=== PATIENT | male | born 1950 | race Caucasian/White ===

== ENCOUNTER 2023-01-15 11:48 | Outpatient (CLI) | payer OTHER, SELFPAY | END 2023-01-15 11:49 | disposition home or self-care (01) | LOC: AMB 02-03 22:59 | PROVIDERS: Visit Provider Student in an Organized Health Care Education/Training Program | DX: E11.65 Type 2 diabetes mellitus with hyperglycemia (principal); R42 Dizziness and giddiness | CPT/HCPCS: A0425; A0427 ==

== ENCOUNTER 2023-01-15 12:18 | Emergency (ER) | payer OTHER, SELFPAY ==
[2023-01-15] VITALS (23 sets, daily range): BP systolic 87–112; BP diastolic 37–63; PULSE 85–111; RESP 18–20; TEMP 36.5; O2SAT 84–100; BMI 23.1
--- NOTE | 2023-01-15 12:49 | ED.GENADULT ---
HPI - General Adult General Date Seen: 01/15/23 Chief complaint: Diabetic Related Problem Stated complaint: hypoglycemic Time Seen by Provider: 01/15/23 12:25 Source: patient Mode of arrival: ambulatory Limitations: no limitations History of Present Illness HPI narrative: Patient is a 72-year-old male presenting to the emergency department for hyperglycemia and dizziness. He states today he went out and send his home Flovent only get more he came back and got to work he was feeling lightheaded and dizzy. He states he gets like this whenever she becomes hyperglycemic. He checked his blood sugar was 350. As the attending decided to come to the emergency department. He has been having issues with blood sugar in got a new pump 1 week ago states has been constant not some problems also. States he feels fine now. Denies fevers, chills, chest pain, abdominal pain, diarrhea, constipation, lightheadedness, weakness, numbness headache, vision changes. This admit to shortness of breath states it is a chronic issue. Also states he has baseline issues with his balance and that is not feeling different today either. Review of Systems Status of ROS: Reports: 10 or more systems reviewed and unremarkable except as noted in History and below [facility] Social History Smoking Status: Never smoker Do you use any of these nicotine containing products: None How often do you have six or more drinks on one occasion: Never AUDIT-C Alcohol total score: 0 Non-prescribed substance use: denies use service: No Exam Narrative: Exam Narrative: Const: Well-nourished, Well-developed, in mild distress Eyes: PERRL, no conjunctival injection, and symmetrical lids ENMT: Atraumatic external nose and ears. Moist mucous membranes. Neck: Symmetric, trachea midline, No thyromegaly. CVS: RRR, No murmurs or gallops. Peripheral pulses 2+ and equal in all extremities RESP: Unlabored respiratory effort. Clear to auscultation bilaterally. GI: Nontender/Nondistended, No rebound or guarding. MSK:Extremities w/o deformity, Normal Active ROM Skin: Warm, Dry. No rashes or lesions. Neuro: Normal Muscle tone, No focal neurological deficits. Psych: Awake, Alert, & Oriented x3. Appropriate mood and affect. Const: Vital Signs, click to edit/add: Vital Signs - 24 hr 01/15/23 12:27 01/15/23 13:58 01/15/23 14:00 Temperature 97.7 F Pulse Rate 94 98 Pulse Rate [Right Pulse Oximeter] 98 Respiratory Rate 18 Blood Pressure Blood Pressure [Ri ght Upper Arm] 94/37 L Pulse Oximetry 95 100 97 Oxygen Delivery Me thod Room Air Room Air Room Air 01/15/23 14:02 01/15/23 14:15 01/15/23 14:30 Temperature Pulse Rate 100 90 93 Pulse Rate [Right Pulse Oximeter] Respiratory Rate Blood Pressure 94/47 L Blood Pressure [Ri ght Upper Arm] Pulse Oximetry [address]od Room Air Room Air Room Air 01/15/23 14:31 01/15/23 14:32 01/15/23 14:45 Temperature Pulse Rate 92 91 89 Pulse Rate [Right Pulse Oximeter] Respiratory Rate 18 Blood Pressure 97/46 L Blood Pressure [Ri ght Upper Arm] Pulse Oximetry [address]od Room Air 01/15/23 15:00 01/15/23 15:02 01/15/23 15:15 Temperature Pulse Rate 91 90 90 Pulse Rate [Right Pulse Oximeter] Respiratory Rate Blood Pressure 111/55 L Blood Pressure [Ri ght Upper Arm] Pulse Oximetry [address]od 01/15/23 15:30 01/15/23 16:02 01/15/23 16:32 Temperature Pulse Rate 111 H Pulse Rate [Right Pulse Oximeter] Respiratory Rate Blood Pressure 105/47 L 106/45 L Blood Pressure [Ri ght Upper Arm] Pulse Oximetry [address] thod 01/15/23 17:02 01/15/23 17:32 01/15/23 18:02 Temperature Pulse Rate Pulse Rate [Right Pulse Oximeter] Respiratory Rate 18 Blood Pressure 109/63 112/53 L 110/51 L Blood Pressure [Ri ght Upper Arm] Pulse Oximetry Oxygen Delivery Ct thod Room Air 01/15/23 18:27 01/15/23 18:36 Temperature Pulse Rate Pulse Rate [Right Pulse Oximeter] 85 Respiratory Rate 18 Blood Pressure 109/56 L Blood Pressure [Ri ght Upper Arm] Pulse Oximetry 97 [facility] Vital Signs Vital signs: Initial Vital Signs Temperature 97.7 F 01/15/23 12:27 Temperature Source Temporal Artery Scan 01/15/23 12:27 Pulse Rate 98 01/15/23 12:27 Respiratory Rate 18 01/15/23 12:27 Blood Pressure 94/37 L 01/15/23 12:27 Blood Pressure Mean 56 L 01/15/23 12:27 Blood Pressure Position Sitting 01/15/23 12:27 Pulse Oximetry 95 01/15/23 12:27 Oxygen Delivery Method Room Air 01/15/23 12:27 Vital Signs Temperature 97.7 F 01/15/23 12:27 Pulse Rate 98 01/15/23 12:27 Respiratory Rate 18 01/15/23 12:27 Blood Pressure 94/37 L 01/15/23 12:27 Pulse Oximetry 95 01/15/23 12:27 Oxygen Delivery Method Room Air 01/15/23 12:27 Temperature 97.7 F 01/15/23 12:27 Pulse Rate 85 01/15/23 18:27 Respiratory Rate 18 01/15/23 18:27 Blood Pressure 109/56 L 01/15/23 18:36 Pulse Oximetry 97 01/15/23 18:27 Oxygen Delivery Method Room Air 01/15/23 18:27 Medical Decision Making MDM Narrative Medical decision making narrative: Patient is a 72-year-old male presented emergency department for hyperglycemia. He said he has been having issues with his insulin pump. He states he got his truck today and feeling dizzy and checked his blood sugar and it was over 300 so he came to the emergency department. By time he arrived his 1st blood sugars 225. This time he states he is feeling much better and asymptomatic. CBC, BMP, magnesium, troponin were all ordered on this patient. EKG was also done. Patient's lab work returns showing signs of an acute kidney injury. His creatinine is 1.9. Is able to look to his health records and shows his baseline is around 1.1. Patient was given 2 L of fluid. Point of care troponins were done but resides be not very accurate instead a lab draw for a BMP was done. His new creatinine is now 1.6. He no longer meets criteria for acute kidney injury. From this standpoint he can be discharged home. He states he is up appointment with his primary care doctor on Tuesday. I gave him strict return precautions and informed him he needs to talk to his primary care provider about his kidney function. He states he understands. While he was here his blood sugar started to drop into the 70s despite multiple feedings. Pre continue to monitor his blood sugar now is stabilized in the 100s. There was able to get his insulin pump glucose monitor working and is now tracking his blood sugars. It is showing his blood sugars in the low 100s also. This standpoint he can also be discharged. Lab Data Labs: Lab Results 01/15/23 01/15/23 01/15/23 Range/Units 13:23 16:00 16:09 WBC 13.77 H (4.50-11.00) K/uL RBC 4.07 L (4.30-5.90) m/uL Hgb 11.9 L (13.5-17.5) gm/dL Hct 36.5 L (37.0-53.0) % MCV 90 (80-100) fL MCH 29 (26-34) pg MCHC 33 (32-36) gm/dL RDW Coeff of Demetrius 14.0 (11.5-15.5) % Plt Count 249 (140-440) K/uL Neut % (Auto) 90.2 H (42.0-72.0) % Lymph % (Auto) 5.7 L (20-44) % Mccormick % (Auto) 3.7 (0.0-11.0) % Eos % (Auto) 0.0 (0.0-7.0) % Baso % (Auto) 0.0 (0.0-3.0) % Neut # (Auto) 12.40 H (1.7-7.0) K/uL Lymph # (Auto) 0.80 L (0.90-2.90) K/uL Mccormick # (Auto) 0.50 (0.00-0.90) K/UL Eos # (Auto) 0.00 (0.00-0.50) K/uL Baso # (Auto) 0.00 (0.00-0.30) K/uL Abs Immat Gran (auto) 0.10 (0.00-0.30) K/uL Imm/Tot Granulo (auto) 0.4 % Sodium 136 (135-149) mmol/L Potassium 3.4 L (3.6-5.1) mmol/L Chloride 100 (96-114) mmol/L Carbon Dioxide 18 L (20-32) mmol/L Anion Gap 18 H (7-15) mEq/L BUN 43 H (7-30) mg/dL Creatinine 1.9 H (0.5-1.5) mg/dL Estimated Creat Clear 40.49 Estimated GFR 37 ml/min Glucose 113 (60-115) mg/dL Calcium 9.8 (8.4-10.6) mg/dL Magnesium 1.8 (1.5-2.6) mg/dL Troponin I 0.03 (0.01-0.04) ng/mL Urine Color (Yellow) Urine Appearance (Clear) Urine pH (5.0-8.5) Ur Specific [place] (1.000-1.030) Urine Protein (Negative) Urine Glucose (UA) (Negative) Urine Ketones (Negative) Urine Blood (Negative) Urine Nitrite (Negative) Urine Bilirubin (Negative) Urine Urobilinogen (0.2-1.0) Ur Leukocyte Esterase (Negative) Urine RBC (0-2) Urine WBC (0-5) Ur Squamous Epith Cells (None-Few) Urine Bacteria (None) POC Glucose 71 (60-115) mg/dl POC Creatinine 1.8 H (0.6-1.3) mg/dl 01/15/23 01/15/23 01/15/23 Range/Units 18:03 18:06 18:20 WBC (4.50-11.00) K/uL RBC (4.30-5.90) m/uL Hgb (13.5-17.5) gm/dL Hct (37.0-53.0) % MCV (80-100) fL MCH (26-34) pg MCHC (32-36) gm/dL RDW Coeff of Demetrius (11.5-15.5) % Plt Count (140-440) K/uL Neut % (Auto) (42.0-72.0) % Lymph % (Auto) (20-44) % M[place]ormick % (Auto) (0.0-11.0) % Eos % (Auto) (0.0-7.0) % Baso % (Auto) (0.0-3.0) % Neut # (Auto) (1.7-7.0) K/uL Lymph # (Auto) (0.90-2.90) K/uL Mccormick # (Auto) (0.00-0.90) K/UL Eos # (Auto) (0.00-0.50) K/uL Baso # (Auto) (0.00-0.30) K/uL Abs Immat Gran (auto) (0.00-0.30) K/uL Imm/Tot Granulo (auto) % Sodium 134 L (135-149) mmol/L Potassium 4.2 (3.6-5.1) mmol/L Chloride 104 (96-114) mmol/L Carbon Dioxide 23 (20-32) mmol/L Anion Gap 7 (7-15) mEq/L BUN 44 H (7-30) mg/dL Creatinine 1.6 H (0.5-1.5) mg/dL Estimated Creat Clear 48.08 Estimated GFR 45 ml/min Glucose 105 (60-115) mg/dL Calcium 9.5 (8.4-10.6) mg/dL Magnesium (1.5-2.6) mg/dL Troponin I (0.01-0.04) ng/mL Urine Color (Yellow) Urine Appearance (Clear) Urine pH (5.0-8.5) Ur Specific [place] (1.000-1.030) Urine Protein (Negative) Urine Glucose (UA) (Negative) Urine Ketones (Negative) Urine Blood (Negative) Urine Nitrite (Negative) Urine Bilirubin (Negative) Urine Urobilinogen (0.2-1.0) Ur Leukocyte Esterase (Negative) Urine RBC (0-2) Urine WBC (0-5) Ur Squamous Epith Cells (None-Few) Urine Bacteria (None) POC Glucose 100 (60-115) mg/dl POC Creatinine 1.9 H (0.6-1.3) mg/dl 01/15/23 Range/Units 18:30 WBC (4.50-11.00) K/uL RBC (4.30-5.90) m/uL Hgb (13.5-17.5) gm/dL Hct (37.0-53.0) % MCV (80-100) fL MCH (26-34) pg MCHC (32-36) gm/dL RDW Coeff of Demetrius (11.5-15.5) % Plt Count (140-440) K/uL Neut % (Auto) (42.0-72.0) % Lymph % (Auto) (20-44) % Mccormick % (Auto) (0.0-11.0) % Eos % (Auto) (0.0-7.0) % Baso % (Auto) (0.0-3.0) % Neut # (Auto) (1.7-7.0) K/uL Lymph # (Auto) (0.90-2.90) K/uL M[place]ick # (Auto) (0.00-0.90) K/UL Eos # (Auto) (0.00-0.50) K/uL Baso # (Auto) (0.00-0.30) K/uL Abs Immat Gran (auto) (0.00-0.30) K/uL Imm/Tot Granulo (auto) % Sodium (135-149) mmol/L Potassium (3.6-5.1) mmol/L Chloride (96-114) mmol/L Carbon Dioxide (20-32) mmol/L Anion Gap (7-15) mEq/L BUN (7-30) mg/dL Creatinine (0.5-1.5) mg/dL Estimated Creat Clear Estimated GFR ml/min Glucose (60-115) mg/dL Calcium (8.4-10.6) mg/dL Magnesium (1.5-2.6) mg/dL Troponin I (0.01-0.04) ng/mL Urine Color Yellow (Yellow) Urine Appearance Clear (Clear) Urine pH 5.5 (5.0-8.5) Ur Specific [place] 1.010 (1.000-1.030) Urine Protein Negative (Negative) Urine Glucose (UA) 3+ A (Negative) Urine Ketones Trace A (Negative) Urine Blood Negative (Negative) Urine Nitrite Negative (Negative) Urine Bilirubin Negative (Negative) Urine Urobilinogen 0.2 (0.2-1.0) Ur Leukocyte Esterase Negative (Negative) Urine RBC 0-2 (0-2) Urine WBC 0-2 (0-5) Ur Squamous Epith Cells None (None-Few) Urine Bacteria None (None) POC Glucose (60-115) mg/dl POC Creatinine (0.6-1.3) mg/dl ECG Data Attestation: I personally reviewed and interpreted this ECG as follows: Prior ECG tracings: not available for review Interpretation: Normal sinus rhythm with a rate of 97 beats per minute, normal axis, no ST or T-wave abnormalities. There does appear to be a first-degree AV block. Discharge Plan Discharge Clinical Impression: VICKI (acute kidney injury), Hyperglycemia Patient Disposition: Home, Self-Care Condition: Stable Instructions: Acute Kidney Injury (DC) Additional Instructions: Your blood sugars now stable. Your kidney function test shows slight elevation. Her baseline is 1.1 at discharge now urine 1.6. You follow-up with a primary care provider on Tuesday it is very important you speak to them about her kidney function. Please return to emergency department if he develops any new or worsening symptoms Follow Up/Referrals: Provider,Not a Local [Primary Care Provider] - Stand Alone Forms: Check-Cap Info Instructions
[2023-01-15] MEDS: 0.9 % SODIUM CHLORIDE 1000 ml 1,000 ML IV (13:15)
[2023-01-15 13:51] LABS: Hematocrit 36.5 % (37.0-53.0); Hemoglobin* 11.9 gm/dL (13.5-17.5); Immature Granulocytes Pct Auto 0.4 %; Lymphocytes Percent Auto 5.7 % (20-44); Mean Corpuscular HGB Conc 33 gm/dL (32-36); Mean Corpuscular Hemoglobin 29 pg (26-34); Mean Corpuscular Volume 90 fL (80-100); Monocytes Percent Auto 3.7 % (0.0-11.0); Neutrophils Percent Auto 90.2 % (42.0-72.0); Platelet Count* 249 K/uL (140-440); Red Blood Count 4.07 m/uL (4.30-5.90); White Blood Count* 13.77 K/uL (4.50-11.00)
[2023-01-15 13:54] LABS: Slide Review Reflex No
[2023-01-15 14:10] LABS: Chloride* 100 mmol/L (96-114)
[2023-01-15 14:11] LABS: Potassium* 3.4 mmol/L (3.6-5.1); Sodium* 136 mmol/L (135-149)
[2023-01-15 14:13] LABS: Anion Gap 18 mEq/L (7-15); Carbon Dioxide* 18 mmol/L (20-32); Creatinine* 1.9 mg/dL (0.5-1.5); Est. Creatinine Clearance* 40.49; Estimated Glomerular Filt Rate 37 ml/min
[2023-01-15 14:14] LABS: Blood Urea Nitrogen* 43 mg/dL (7-30); Calcium* 9.8 mg/dL (8.4-10.6); Glucose* 113 mg/dL (60-115); Magnesium* 1.8 mg/dL (1.5-2.6)
[2023-01-15 14:28] LABS: Troponin I* 0.03 ng/mL (0.01-0.04)
--- NOTE | 2023-01-15 15:25 | ED.NURSE ---
Blood sugar 67. Gave pt gina cracker, apple juice and jello. Will recheck. notified.
[2023-01-15 16:05] LABS: Glucose, Point-of-Care* 71 mg/dl (60-115)
[2023-01-15 16:28] LABS: Creatinine, Point-of-Care* 1.8 mg/dl (0.6-1.3)
--- NOTE | 2023-01-15 17:17 | ED.NURSE ---
pt is resting in room. Reports he is feeling much better than when he came in. not lightheaded. Blood sugars are improving
[2023-01-15 18:18] LABS: Glucose, Point-of-Care* 100 mg/dl (60-115)
[2023-01-15 18:29] LABS: Creatinine, Point-of-Care* 1.9 mg/dl (0.6-1.3)
[2023-01-15 18:47] LABS: Chloride* 104 mmol/L (96-114); Potassium* 4.2 mmol/L (3.6-5.1); Sodium* 134 mmol/L (135-149)
[2023-01-15 18:50] LABS: Anion Gap 7 mEq/L (7-15); Blood Urea Nitrogen* 44 mg/dL (7-30); Carbon Dioxide* 23 mmol/L (20-32); Creatinine* 1.6 mg/dL (0.5-1.5); Est. Creatinine Clearance* 48.08; Estimated Glomerular Filt Rate 45 ml/min; Glucose* 105 mg/dL (60-115)
[2023-01-15 18:51] LABS: Appearance Urine Clear (Clear); Bilirubin Urine Negative (Negative); Blood Urine Negative (Negative); Color Urine Yellow (Yellow); Glucose Urine 3+ (Negative); Ketones Urine Trace (Negative); Leukocyte Esterase Urine Negative (Negative); Nitrite Urine Negative (Negative); Protein Urine Negative (Negative); Urobilinogen Urine 0.2 (0.2-1.0); pH Urine 5.5 (5.0-8.5)
[2023-01-15 18:51] LABS: Calcium* 9.5 mg/dL (8.4-10.6)
[2023-01-15 19:03] LABS: RBC Urine 0-2 (0-2); WBC Urine 0-2 (0-5)
== END 2023-01-15 19:23 | disposition home or self-care (01) ==
PROVIDERS: Emergency Provider Student in an Organized Health Care Education/Training Program
DX: E11.65 Type 2 diabetes mellitus with hyperglycemia (principal); N17.9 Acute kidney failure, unspecified
CPT/HCPCS: 36415; 80048; 80053; 81001; 82565; 82947; 82962; 83735; 84484; 85025; 93005; 99283; 99284; J7030